=== PATIENT | male | born 1985 | race Caucasian/White ===

== ENCOUNTER 2017-11-06 22:44 | Emergency (ER) | payer BC ==
[~2017-11-06] VITALS: Ht 182.9 cm; Wt 97.3 kg
[2017-11-06 22:51] VITALS: TEMP 97.8
[2017-11-06] MEDS ORDERED: NORCO 325 MG-51 TAB PO (23:36)
[2017-11-06 23:56] VITALS: BP 105/60; PULSE 70
== END 2017-11-06 23:58 | disposition home or self-care (01) ==
LOC: COL.ER 22:44 → EDSEX 22:45 → COL.ER 23:58
DX: S86.812A Strain of other muscle(s) and tendon(s) at lower leg level, left leg, initial encounter (principal); X50.0XXA Overexertion from strenuous movement or load, initial encounter; Y92.831 Amusement park as the place of occurrence of the external cause